=== PATIENT | male | born 1975 | race Hispanic/Latino ===

== ENCOUNTER 2017-07-09 09:54 | Day surgery (SDC) | payer MEDICARE ==
[~2017-07-09 09:54] MED LIST: LACTATED RINGERS 1,000 ML IV SCH; PEPCID PO NR; VERSED IV NR
[2017-07-09] MEDS ORDERED: ZOFRAN IV PRN (11:17)
[2017-07-09] MEDS ORDERED: DILAUDID IV NR (11:17)
--- NOTE | 2017-07-09 11:17 | Anesthesia Consultation ---
Anesthesia Consult and Med Hx Date of service: 07/09/17 - Airway Anesthetic Teeth Evaluation: Good, Chipped (top front) ROM Head & Neck: Adequate Mental/Hyoid Distance: Adequate Mallampati Class: Class II Intubation Access Assessment: Probably Good - Pulmonary Exam CTA: Yes - Cardiac Exam Cardiac Exam: RRR - Pre-Operative Health Status ASA Pre-Surgery Classification: ASA3 Proposed Anesthetic Plan: General - Pulmonary Hx Smoking: No Hx Sleep Apnea: No (GARCIA PRE SCREEN LOW RISK) - Cardiovascular System Hx Hypertension: Yes (X 20 YRS) - Central Nervous System Hx Back Pain: Yes (CHRONIC) - Endocrine Hx Renal Disease: Yes Hx End Stage Renal Disease: Yes (PD DIALYSIS NIGHTLY- STATED 12/2016) Hx Non-Insulin Dependent Diabetes: Yes (not on meds) - Other Systems Hx Cancer: No
--- NOTE | 2017-07-09 11:17 | Anesthesia Day of Surgery ---
Anesthesia Day of Surgery - Day of Surgery Patient Examined: Yes Patient H&P Reviewed: Yes Patient is NPO: Yes
[2017-07-09] MEDS ORDERED: NACL BACTERIOSTATIC INFILTRATI ONE (11:22)
[2017-07-09] MEDS ORDERED: NACL 0.9% 1000 ML 1,000 ML IV SCH (12:00)
[2017-07-09 12:11] LABS: Hematocrit 26.9 % (35.5-45.6); Hemoglobin 9.3 gm/dl (11.8-15.2)
[2017-07-09] MEDS ORDERED: XYLOCAINE MPF 2% ONE (12:11)
[2017-07-09] MEDS ORDERED: ZEMURON IV ONE (12:11)
[2017-07-09] MEDS ORDERED: SUBLIMAZE ONE (12:11)
[2017-07-09] MEDS ORDERED: DIPRIVAN 10 MG/ML IV ONE (12:11)
[2017-07-09 12:23] LABS: BUN/Creatinine Ratio 5.62; Calcium 8.9 mg/dL (8.4-10.2); Chloride 102.6 mmol/L (98-107); Potassium 4.5 mmol/L (3.6-5.0)
[2017-07-09] MEDS ORDERED: HEPARIN SUB-Q NR (12:30)
[2017-07-09] MEDS ORDERED: ZOFRAN ONE (12:52)
[2017-07-09] MEDS ORDERED: ANCEF/STERILE WATER 2 GM/20 ML IV NR (13:00)
[2017-07-09] MEDS ORDERED: ePHEDrine SULFATE ONE (13:02)
[2017-07-09] MEDS ORDERED: DILAUDID ONE (13:04)
[2017-07-09] MEDS ORDERED: NEOSTIGMINE ONE (13:05)
[2017-07-09] MEDS ORDERED: ROBINUL ONE ×2 (13:05→13:50)
[2017-07-09] MEDS ORDERED: NACL 0.9% IR ONE (13:43)
--- NOTE | 2017-07-09 14:10 | Post Operative Note ---
Pre-op diagnosis: Chronic cholecystitis Post-op diagnosis: same Findings: Omental adhesions Procedure: Laparoscopic cholecystectomy Anesthesia: LAUREN Surgeon: BETINA MAI Estimated blood loss: 50-100ml Pathology: list (Gallbladder) Specimen disposition: to lab Condition: stable Disposition: PACU
[2017-07-09] MEDS: DILAUDID IV PRN ×4 (14:55→16:00)
[2017-07-09] MEDS: PERCOCET 5/325 PO PRN ×2 (15:44→17:49)
[2017-07-09] MEDS ORDERED: PHENERGAN PO PRN (17:45)
[2017-07-09] MEDS ORDERED: TRANSDERM-SCOP TD ONE (17:45)
--- NOTE | 2017-07-09 18:04 | Post Anesthesia Evaluation ---
- Post Anesthesia Evaluation Patient Participated: Yes Airway Patent: Yes Stable Respiratory Function: Yes Nausea/Vomiting: No Temp > 96.8F: Yes Pain Manageable: Yes Adequeate Hydration: Yes Anesthesia Complications: No Block Receding Appropriately: Not Applicable Patient on Ventilator: No
[2017-07-09 19:10] VITALS: BP 154/84
--- NOTE | 2017-07-12 14:44 | Operative Report ---
Operative Report Operative Report: Date of operation: 07/09/2017 Preoperative diagnosis: Chronic cholecystitis Postoperative diagnosis: Same Operation: Laparoscopic cholecystectomy Surgeon: Rome Rosario M.D. Findings: Omental adhesions to the gallbladder Anesthesia: GETA EBL: 75 ml Pathology: Gallbladder and gallstones There were no complications, drains or cultures. Description of procedure: Patient was placed supine on the operating room table. GETA was administered. Abdomen was prepped and draped. Proposed trocar sites were infiltrated with a total of 8 mL's of 0.25% Marcaine with epinephrine. A small infraumbilical incision was made, linea alba incised and the peritoneal cavity carefully entered. A Jones port was inserted into the peritoneal cavity and pneumoperitoneum established. 5 mm subxiphoid, right upper quadrant and right lateral abdominal ports were then inserted into the peritoneal cavity under direct vision without incident. Patient was placed in a reverse Trendelenburg position with his right side rotated upward. The fundus of the gallbladder was grasped and was retracted cephalad and laterally. The critical view of safety was obtained. Cystic duct was milked toward the gallbladder. The cystic duct was then doubly clipped and divided. Cystic artery was doubly clipped and divided. The gallbladder was then dissected off of its hepatic fossa using the Bovie. The gallbladder and gallstones were placed in an Endobag and the Endobag and gallbladder removed via the patient's infraumbilical fascial defect. The Jones port was replaced and pneumoperitoneum was reestablished. Irrigation fluid used during the procedure was aspirated from Henson's pouch and the subhepatic space. The upper abdominal ports were removed and no bleeding was identified from the port entry sites under low intra-abdominal pressure. The infraumbilical port was removed and the pneumoperitoneum released. The infraumbilical fascial defect was closed with 2 interrupted sutures of 0 Vicryl. Skin incisions were closed with running subcuticular sutures of 4-0 Monocryl. Sterile absorbent dressings were applied to all the incisions. Patient tolerated the procedure well. Patient was extubated in the operating room and was taken to the PACU in stable condition.
== END 2017-07-09 18:45 | disposition home or self-care (01) ==
LOC: OR 09:54
PROVIDERS: ATTEND Surgery
DX: K80.10 Calculus of gallbladder with chronic cholecystitis without obstruction (principal); E11.22 Type 2 diabetes mellitus with diabetic chronic kidney disease; I12.0 Hypertensive chronic kidney disease with stage 5 chronic kidney disease or end stage renal disease; N18.6 End stage renal disease; Z99.2 Dependence on renal dialysis; Z88.4 Allergy status to anesthetic agent
CPT/HCPCS: 36415; 47562; 80048; 82962; 85014; 85018; 88304; A4217; J0690; J1170; J1644; J2250; J2405; J2704; J2710; J3010; J7030; J7120; Q0169